=== PATIENT | female | born 1985 | race African-American/Black ===

== ENCOUNTER 2018-01-11 22:33 | Emergency (ER) | payer SELFPAY ==
[2018-01-11] MEDS: METOCLOPRAMIDE HCL 10 MG/2 ML VIAL. IV (23:10)
[2018-01-11] MEDS: KETOROLAC 30 MG/ML INJ. IV (23:10)
[2018-01-11] MEDS: DEXAMETHASONE SOD PHOS 20 MG/5 ML VIAL. IV (23:10)
[2018-01-11] MEDS: diphenhydrAMINE 50 MG/ML VIAL IVP (23:10)
[2018-01-11] MEDS: IV NORMAL SALINE 1000ML BAG 1,000 ML IV (23:11)
== END 2018-01-12 00:50 | disposition home or self-care (01) ==
LOC: ER 01-12 00:50
DX: G43.909 Migraine, unspecified, not intractable, without status migrainosus (principal); F12.10 Cannabis abuse, uncomplicated; Z90.49 Acquired absence of other specified parts of digestive tract; Z98.51 Tubal ligation status
CPT/HCPCS: 70450; 96361; 96374; 96375; 99284-25; J1100; J1200; J1885; J2765; J7030

== ENCOUNTER 2019-04-23 16:17 | Emergency (ER) | payer SELFPAY ==
[~2019-04-23] VITALS: Ht 170.2 cm; Wt 117.9 kg
[~2019-04-23 16:17] MED LIST: HYDR-3164 PO; SULF1TAB24 PO
[2019-04-23 16:29] VITALS: BP 104/91
[2019-04-23] MEDS ORDERED: DEXAMETHASONE 4 MG TABLET PO ONE (17:00)
[2019-04-23] MEDS ORDERED: AMOX500T PO (17:04)
--- NOTE | 2019-04-23 17:04 | PHYS DOC ---
Past Medical History Past Medical History: No Pertinent History Past Surgical History: Cholecystectomy Additional Past Surgical Histo: tubal ligation Alcohol Use: None Drug Use: Marijuana Adult General Chief Complaint Chief Complaint: SORE THROAT HPI HPI Patient is a 34 year old AA female who presents to the emergency room with complaints of sore throat, fever, and neck pain for the last week. Patient states that her her sore throat pain is so bad that it has caused her to vomit. She states that her fever has been in the low 100s. Currently she rates her pain a 10 out of 10 on the pain scale, she denies any alleviating factors, states that swallowing and vomiting make her throat pain worse. Patient has been taking Tylenol and ibuprofen as needed for relief of fever. ROS Patient denies any cough, shortness of breath, wheezing, diarrhea, dysuria, or back pain. She does report nausea and vomiting with epigastric pain when she vomits. She denies any abdominal pain at this time. She also complains of a sore throat and fever for the last week. All other ROS is neg unless otherwise noted in HPI. Review of Systems Review of Systems See Above Current Medications Current Medications Current Medications Medications (Trade) Dose Ordered Sig/Bella Start Time Stop Time Status Last Admin Dose Admin Dexamethasone (Decadron) 10 mg 1X ONCE 04/23/19 17:00 04/23/19 17:01 04/23/19 16:48 10 MG Allergies Allergies Allergies Coded Allergies Type Severity Reaction Last Updated Verified No Known Drug Allergies 03/09/15 No Physical Exam Physical Exam See Above Constitutional: Well developed, well nourished, no acute distress, non-toxic appearance, obese [] HENT: Normocephalic, atraumatic, bilateral external ears normal, bilateral TMs normal, erythema posterior pharynx with 1+ edema bilateral tonsils, malodorous breath, oropharynx moist, no oral exudates, nose normal. [] Eyes: PERRLA, EOMI, conjunctiva normal, no discharge. [] Neck: Normal range of motion, anterior cervical chain lymphadenopathy with tenderness, no stridor. [] Cardiovascular:Heart rate regular rhythm, no murmur [] Lungs & Thorax: Bilateral breath sounds clear to auscultation [] Skin: Warm, dry, no erythema, no rash. [] Extremities: No cyanosis, no clubbing, ROM intact, no edema. [] Neurologic: Alert and oriented X 3, no focal deficits noted. [] Psychologic: Affect normal, judgement normal, mood normal. [] Current Patient Data Vital Signs Vital Signs Date Time Temp Pulse Resp B/P (MAP) Pulse Ox O2 Delivery O2 Flow Rate FiO2 04/23/19 16:29 98.9 104 16 104/91 (95) 97 Room Air 98.9 EKG EKG [] Radiology/Procedures Radiology/Procedures Rapid strep negative, however will treat as patient reports fever, has anterior chain cervical lymphadenopathy, malodorous breath, posterior pharynx erythema.[] Course & Med Decision Making Course & Med Decision Making Pertinent Labs and Imaging studies reviewed. (See chart for details) [] Dragon Disclaimer Dragon Disclaimer This electronic medical record was generated, in whole or in part, using a voice recognition dictation system. Departure Departure Impression: Primary Impression: Pharyngitis, acute Disposition: HOME, SELF-CARE Condition: STABLE Referrals: NO PCP (PCP) Patient Instructions: Viral and Bacterial Pharyngitis, [id number] Additional Instructions: Fill prescription and use as directed. Recommend warm salt water gargles as needed for relief of discomfort. Alternate Tylenol and ibuprofen as needed for fever/pain. Discard your toothbrush tomorrow and begin using a new toothbrush. Follow-up with primary care doctor if symptoms persist. Return to the ER if symptoms worsen. Scripts Amoxicillin (AMOXICILLIN) 500 Mg Tablet 1 TAB PO BID, #20 TAB 0 Refills Prov: HILARIA MURRAY APRN 04/23/19 Problem Qualifiers Primary Impression: Pharyngitis, acute Pharyngitis/tonsillitis etiology: unspecified etiology Qualified Codes: J02.9 - Acute pharyngitis, unspecified HILARIA MURRAY STATIONARY ENGINEER Apr 23, 2019 17:04
== END 2019-04-23 17:23 | disposition home or self-care (01) ==
LOC: ER 16:17
DX: J02.9 Acute pharyngitis, unspecified (principal); R11.2 Nausea with vomiting, unspecified; R10.13 Epigastric pain; R59.0 Localized enlarged lymph nodes; Z90.49 Acquired absence of other specified parts of digestive tract; Z98.51 Tubal ligation status
CPT/HCPCS: 99283; J8540

== ENCOUNTER 2019-05-08 22:21 | Emergency (ER) | payer SELFPAY ==
[~2019-05-08] VITALS: Ht 165.1 cm; Wt 127.0 kg
[~2019-05-08 22:21] MED LIST changes: +AMOX500T PO
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
[2019-05-08] MEDS ORDERED: IV NORMAL SALINE 1000ML BAG 1,000 ML IV ONE (22:45)
[2019-05-08 22:53] LABS: BASO # 0.1 x10^3/uL (0.0-0.2); BASO % 1 % (0-3); EOS # 0.3 x10^3/uL (0.0-0.7); EOS % 3 % (0-3); HEMATOCRIT 33.8 % (36.0-47.0); HEMOGLOBIN 11.1 g/dL (12.0-15.5); LYMPH # 3.2 x10^3/uL (1.0-4.8); LYMPH % 36 % (24-48); MEAN CORPUSCULAR HEMOGLOBIN 23 pg (25-35); MEAN CORPUSCULAR HGB CONC 33 g/dL (31-37); MEAN CORPUSCULAR VOLUME 71 fL (79-100); MONO # 0.5 x10^3/uL (0.0-1.1); MONO % 6 % (0-9); NEUT % 55 % (31-73); PLATELET COUNT 320 x10^3/uL (140-400); RED BLOOD COUNT 4.78 x10^6/uL (3.50-5.40); RED CELL DISTRIBUTION WIDTH 14.8 % (11.5-14.5)
[2019-05-08 23:05] LABS: CALCIUM 8.8 mg/dL (8.5-10.1); CREATININE 1.1 mg/dL (0.6-1.0); POTASSIUM 3.7 mmol/L (3.5-5.1)
[2019-05-08 23:08] LABS: ACETAMIN < 2 mcg/ml (10-30); ETHANOL < 10 mg/dL (0-10); SALIC 5.9 mg/dL (2.8-20.0)
[2019-05-08 23:11] LABS: ALBUMIN 3.6 g/dL (3.4-5.0); ALBUMIN/GLOBULIN RATIO 0.9 (1.0-1.7); MAGNESIUM 1.8 mg/dL (1.8-2.4); TOTAL BILIRUBIN 0.3 mg/dL (0.2-1.0); TOTAL PROTEIN 7.5 g/dL (6.4-8.2)
[2019-05-08 23:18] LABS: CREATINE KINASE 80 U/L (26-192)
[2019-05-08 23:24] LABS: BARBITURATES NEG (NEG); BENZODIAZEPINES NEG (NEG); CANNABINOIDS POS (NEG); COCAINE NEG (NEG); METHADONE NEG (NEG); OPIATES NEG (NEG); PHENCYCLIDINE POS (NEG)
[2019-05-08 23:25] LABS: AMPHETAMINE/METHAMPHETAMINE NEG (NEG)
[2019-05-08 23:36] LABS: PLT ESTIMATE ADEQUATE (ADEQUATE)
[2019-05-08 23:37] LABS: HYPOCHROMIA SLIGHT; MICROCYTOSIS MOD
--- NOTE | 2019-05-08 23:38 | RAD ---
EXAM: CT HEAD WITHOUT CONTRAST. HISTORY: Altered mental status. TECHNIQUE: Computed tomography of the head was performed without intravenous contrast. COMPARISON: 01/11/2018. FINDINGS: There is no intracranial hemorrhage. Moyer-white differentiation is preserved. The ventricles are normal in size and position. The visualized paranasal sinuses appear clear. The orbits are unremarkable. The temporal bones are unremarkable. The calvarium reveals no suspicious lesions. IMPRESSION: 1. No acute intracranial findings. *One or more of the following individualized dose reduction techniques were utilized for this examination: 1. Automated exposure control. 2. Adjustment of the mA and/or kV according to patient size. 3. Use of iterative reconstruction technique. Electronically signed by: Frank Dunbar MD (05/08/2019 11:35 PM) [facility]
[2019-05-08 23:46] LABS: BILIRUBIN,URINE NEGATIVE (NEG); CLARITY,URINE CLEAR; COLOR,URINE YELLOW; NITRITE,URINE NEGATIVE (NEG); PROTEIN,URINE NEGATIVE (NEG-TRACE)
[2019-05-08 23:51] LABS: BACTERIA,URINE FEW /HPF (0-FEW); RBC,URINE 0 /HPF (0-2); SQUAMOUS EPITHELIAL CELL,UR MOD /LPF
[2019-05-09 01:30] VITALS: BP 148/83
--- NOTE | 2019-05-09 06:22 | EKG ---
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
== END 2019-05-09 01:50 | disposition home or self-care (01) ==
LOC: ER 22:21
DX: R41.82 Altered mental status, unspecified (principal); F16.19 Hallucinogen abuse with unspecified hallucinogen-induced disorder; F12.20 Cannabis dependence, uncomplicated; Z90.49 Acquired absence of other specified parts of digestive tract; Z98.51 Tubal ligation status
CPT/HCPCS: 36415; 70450; 80053; 80307; 80329; 81001; 82553; 83690; 83735; 83880; 84443; 84484; 85025; 93005; 96360; 99285; G0480; J7030

== ENCOUNTER 2021-07-28 22:10 | Emergency (ER) | payer MEDICAID ==
[~2021-07-28] VITALS: Ht 170.2 cm; Wt 129.5 kg
[2021-07-28 22:30] VITALS: BP 171/96
[2021-07-28] MEDS ORDERED: HYDR-2761 PO (22:44)
[2021-07-28] MEDS ORDERED: SULF1TAB24 PO (22:44)
[2021-07-28] MEDS ORDERED: KETO15CR2 TP (22:44)
--- NOTE | 2021-07-28 22:49 | PHYS DOC ---
Past Medical History Past Medical History: No Pertinent History Past Surgical History: Cholecystectomy Additional Past Surgical Histo: tubal ligation Smoking Status: Current Every Day Smoker Alcohol Use: None Drug Use: Marijuana, Other General Adult EDM: Chief Complaint: ABSCESS HPI: HPI: Patient is a 36 year old female who presents with 1 week of a right axilla redness abscess with drainage. She states is burning. Almost like a yeast contact dermatitis. She denies fever, nausea, vomiting, diarrhea, body aches, dizziness, headache, chest pain, shortness of breath. She has a history of cholecystectomy, PCP use, tubal ligation and smoking. Review of Systems: Review of Systems: Constitutional: Denies fever or chills. [] Eyes: Denies change in visual acuity. [] HENT: Denies nasal congestion or sore throat. [] Respiratory: Denies cough or shortness of breath. [] Cardiovascular: Denies chest pain or edema. [] GI: Denies abdominal pain, nausea, vomiting, bloody stools or diarrhea. [] : Denies dysuria. [] Musculoskeletal: Denies back pain or joint pain. + Right axilla pain [] Integument: Denies rash. + Right axilla rash [] Neurologic: Denies headache, focal weakness or sensory changes. [] Endocrine: Denies polyuria or polydipsia. [] Lymphatic: Denies swollen glands. [] Psychiatric: Denies depression or anxiety. [] Heart Score: C/O Chest Pain: No Allergies: Allergies: Allergies Coded Allergies Type Severity Reaction Last Updated Verified No Known Drug Allergies 03/09/15 No Physical Exam: PE: Constitutional: Well developed, well nourished, no acute distress, non-toxic appearance. [] HENT: Normocephalic, atraumatic, bilateral external ears normal, oropharynx moist, no oral exudates, nose normal. [] Eyes: PERRLA, EOMI, conjunctiva normal, no discharge. [] Neck: Normal range of motion, no tenderness, supple, no stridor. [] Cardiovascular:Heart rate regular rhythm, no murmur [] Lungs & Thorax: Bilateral breath sounds clear to auscultation [] Abdomen: Bowel sounds normal, soft, no tenderness, no masses, no pulsatile masses. [] Skin: Warm, dry, no erythema, right axilla drainage with yeast contact dermatitis type rash rash. [] Back: No tenderness, no CVA tenderness. [] Extremities: No tenderness, no cyanosis, no clubbing, ROM intact, no edema. [] Neurologic: Alert and oriented X 3, normal motor function, normal sensory function, no focal deficits noted. [] Psychologic: Affect normal, judgement normal, mood normal. [] EKG: EKG: [] Radiology/Procedures: Radiology/Procedures: [] Course & Med Decision Making: Course & Med Decision Making Pertinent Labs and Imaging studies reviewed. (See chart for details) See HPI. Alert and oriented x4. Amatory steady gait. Skin pink warm and dry. Afebrile. Right axillary drainage with yeast dermatitis/cellulitis rash. Tender to palpation. Patient states she has had this before. She will be placed on Bactrim antibiotic, ketoconazole cream. [] Dragon Disclaimer: Dragon Disclaimer: This electronic medical record was generated, in whole or in part, using a voice recognition dictation system. Departure Departure Impression: Primary Impression: Abscess of right axilla Disposition: HOME / SELF CARE / HOMELESS Condition: STABLE Referrals: NO PCP (PCP) Patient Instructions: Abscess Additional Instructions: Use a warm compress to the area. Keep it clean and dry in that area. Use medication as prescribed and take them with food. Follow-up with your primary care provider. Scripts Hydrocodone Bit/Acetaminophen (HYDROCODONE-APAP 5-325 ) 1 Tab Tablet 1 TAB PO PRN Q6HRS PRN for PAIN, #6 TAB 0 Refills Prov: SOFI MANN APRN 07/28/21 Ketoconazole (KETOCONAZOLE) 15 Gm Cream..g. 1 JAVI TP BID for 14 Days, #60 GM 1 Refill Prov: SOFI MANN APRN 07/28/21 Sulfamethoxazole/Trimethoprim (BACTRIM DS TABLET) 1 Each Tablet 1 TAB PO BID for 7 Days, #14 TAB 0 Refills Prov: SOFI MANN APRN 07/28/21 SOFI MANN SEA CAPTAIN Jul 28, 2021 22:49
== END 2021-07-28 23:07 | disposition home or self-care (01) ==
LOC: ER 22:10
DX: L02.411 Cutaneous abscess of right axilla (principal); F17.200 Nicotine dependence, unspecified, uncomplicated
CPT/HCPCS: 99283